=== PATIENT | male | born 1960 | race Two or more races ===

== ENCOUNTER 2018-11-05 08:30 | Inpatient (IN) | payer OTHER ==
[~2018-11-05] VITALS: Ht 167.6 cm; Wt 88.5 kg
[2018-11-05] MEDS ORDERED: LOSARTAN-HCTZ1 EAC1 PO (11:00)
[2018-11-05] MEDS ORDERED: RESTORIL30 M1 PO (11:01)
[2018-11-05] MEDS ORDERED: ATORVASTATIN CA20 MG PO (11:01)
[2018-11-05] MEDS ORDERED: NORVASC10 MG PO (11:01)
[2018-11-05] MEDS ORDERED: VISTARIL25 MG PO (11:01)
[2018-11-05] MEDS ORDERED: PAXIL20 MG PO (11:02)
== END 2018-11-16 10:46 | disposition home or self-care (01) | DRG 658 ==
LOC: O/R 11-11 05:30 → SURG 11-11 05:30 → SURH 11-11 07:00 → SURG 11-11 13:54
PROVIDERS: ADMIT Urology
PROC: 0TB10ZZ Excision of Left Kidney, Open Approach (ICD-10-PCS; principal; 2018-11-11 07:00)
DX: C64.2 Malignant neoplasm of left kidney, except renal pelvis (principal); I10 Essential (primary) hypertension